=== PATIENT | female | born 1990 ===

== ENCOUNTER 2016-09-22 05:55 | Emergency (ER) | payer SELFPAY ==
[2016-09-22 06:05] VITALS: BP 126/82; PULSE 72; RESP 18; TEMP 98.8; O2SAT 100; BMI 25.0
[2016-09-22 06:21] LABS: PH,URINE 6.5 (4.7-8.0); URINE BILIRUBIN NEGATIVE (NEGATIVE); URINE BLOOD LARGE (NEGATIVE); URINE GLUCOSE (UA) NEGATIVE (NEGATIVE); URINE KETONE NEGATIVE (NEGATIVE); URINE LEUKOCYTE ESTERASE LARGE Leu/uL (NEGATIVE); URINE PROTEIN 100 mg/dL (<30 mg/dL); URINE UROBILINOGEN 0.2 E.U./dL (<1 E.U./dL)
[2016-09-22 06:33] LABS: URINE APPEARANCE SLIGHT-CLOUDY (CLEAR); URINE COLOR LIGHT RED (YELLOW)
[2016-09-22 06:44] LABS: URINE BACTERIA OCC (NEG); URINE EPITHELIAL CELLS 0 - 2 /hpf (0-5); URINE WBC 15 - 20 /hpf (0-6)
--- NOTE | 2016-09-22 07:30 | ED PDOC ---
Arrival/HPI - General Historian: Patient - History of Present Illness Time/Duration: < week Quality: Cramping, Burning, Dullness Severity Level: 7 - General Chief Complaint: Female Genitourinary Time Seen by Provider: 09/22/16 06:54 - History of Present Illness Narrative History of Present Illness (Text): 09/22/16 07:34 25 yo F w no significant past medical history presents with c/o dysuria and hematuria x4-5 days. Admits to 11/19 dull, cramping lower abdominal pain and lower back pain. LMP 09/03/2016. Patient states she has never had anything like this before, denies any h/o previous UTIs and STIs. Patient denies CP, SOB, SEGUNDO , headache, dizziness, arthralgias, rashes, fevers, chills, n/v/d/c, flank pain. (Kellen Salgado) Past Medical History - Infectious Disease Hx of Infectious Diseases: None - Reproductive Menopause: No - Psychiatric Hx Substance Use: No - Anesthesia Hx Anesthesia: No Hx Malignant Hyperthermia: No Family/Social History - Physician Review Nursing Documentation Reviewed: Yes Family/Social History: No Known Family HX Smoking Status: Never Smoked Hx Alcohol Use: No Hx Substance Use: No Allergies/Home Meds Allergies/Adverse Reactions: Allergies No Known Allergies Allergy (Verified 09/22/16 06:05) Review of Systems - Review of Systems Constitutional: absent: Fatigue, Weight Change, Fevers Eyes: absent: Vision Changes Respiratory: absent: SOB, Cough Cardiovascular: absent: Chest Pain, Palpitations, Edema, SEGUNDO Gastrointestinal: Abdominal Pain (lower abdomen). absent: Constipation, Diarrhea, Nausea, Vomiting, Hematochezia, Hematemesis Genitourinary Female: Dysuria, Hematuria Musculoskeletal: Back Pain Skin: absent: Rash, Skin Lesions Neurological: absent: Headache, Dizziness Physical Exam Temperature: Afebrile Blood Pressure: Normal Pulse: Regular Respiratory Rate: Normal Appearance: Positive for: Well-Appearing, Non-Toxic, Comfortable Pain Distress: Mild Mental Status: Positive for: Alert and Oriented X 3 - Systems Exam Head: Present: Atraumatic, Normocephalic Pupils: Present: PERRL Extroacular Muscles: Present: EOMI Conjunctiva: Present: Normal. No: Injected, Icteric Mouth: Present: Moist Mucous Membranes Neck: Present: Normal Range of Motion. No: Meningeal Signs, JVD Respiratory/Chest: Present: Clear to Auscultation, Good Air Exchange. No: Respiratory Distress, Accessory Muscle Use Cardiovascular: Present: Regular Rate and Rhythm, Normal S1, S2. No: Murmurs Abdomen: Present: Tenderness (suprapubic), Normal Bowel Sounds. No: Distention , Peritoneal Signs, Rebound, Guarding, McBurney's Point Tender, Rovsing's Sign Present Back: No: CVA Tenderness Upper Extremity: Present: Normal Inspection, NORMAL PULSES, Capillary Refill < 2s. No: Cyanosis, Edema Lower Extremity: Present: Normal Inspection, NORMAL PULSES. No: Edema, CALF TENDERNESS Neurological: Present: GCS=15, CN II-XII Intact, Speech Normal Skin: Present: Warm, Dry, Normal Color. 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 A 25 year old female with hematuria and dysuria. In agreement with resident note , which includes further HPI details. (Mario Olmos) 09/22/16 07:55 25 yo F w no sig medical history presented with lower abdominal cramping and pain, hematuria and dysuria x 5 days. UA positive for UTI. Toradol for pain and IVF. CT a/p to r/o pyelo, torsion, abscess, nephrolithiasis, etc. Urine preg test negative. Labs, chlamydia, gonorrhea sent. 09/22/16 09:30 Patient re-evaluated, states she feels better but still has some burning on urination. Abdominal pain improved. UTI diagnosis discussed, instructed to followup with PMD and gynecology, patient expresses understanding of plan. (Kellen Salgado) - Lab Interpretations Lab Results: 09/22/16 08:00 09/22/16 08:00 Lab Results 09/22/16 08:00: WBC 10.9, RBC 4.51, Hgb 13.5, Hct 39.4, MCV 87.4, MCH 29.9, MCHC 34.3, RDW 13.5, Plt Count 223, MPV 11.5 H, Gran % 82.8 H, Lymph % (Auto) 11.5 L, Sevier % (Auto) 5.3, Eos % (Auto) 0.2 L, Baso % (Auto) 0.2, Gran # 9.03 H , Lymph # 1.3, Sevier # 0.6, Eos # 0.0, Baso # 0.02, Sodium 139, Potassium 4.4, Chloride 102, Carbon Dioxide 28, Anion Gap 13, BUN 10, Creatinine 0.7, Est GFR ( Amer) > 60, Est GFR (Non-Af Amer) > 60, Random Glucose 101, Calcium 9.7 , Total Bilirubin 0.8, AST 30, ALT 34, Alkaline Phosphatase 87, Total Protein 8.4 H, Albumin 4.5, Globulin 3.9, Albumin/Globulin Ratio 1.2 09/22/16 06:00: Urine Color Light red, Urine Appearance Slight-cloudy, Urine pH 6.5, Ur Specific [place] <= 1.005, Urine Protein 100 H, Urine Glucose (UA) Negative, Urine Ketones Negative, Urine Blood Large H, Urine Nitrate Negative, Urine Bilirubin Negative, Urine Urobilinogen 0.2, Ur Leukocyte Esterase Large H , Urine RBC 1 - 3, Urine WBC 15 - 20, Ur Epithelial Cells 0 - 2, Urine Bacteria Occ - RAD Interpretation Narrative RAD Interpretations (Text): 09/22/16 09:40 CT A/P without contrast -- No evidence of urinary calculus or urinary tract obstruction. Probable exophytic left upper pole renal cortical cyst, 1.8cm, appears separate from adrenal gland. No other significant abnormalities. ( Kellen Salgado) Radiology Orders: 09/22/16 07:19 ABD & PELVIS W/O PO OR IV CONT [CT] Stat - Medication Orders Current Medication Orders: Discontinued Medications Sodium Chloride (Sodium Chloride 0.9%) 1,000 mls @ 999 mls/hr IV .Q1H1M STA Stop: 09/22/16 08:46 Ketorolac Tromethamine (Toradol) 15 mg IM STAT STA Stop: 09/22/16 07:47 Disposition/Present on Arrival - Present on Arrival Any Indicators Present on Arrival: No History of DVT/PE: No History of Uncontrolled Diabetes: No Urinary Catheter: No History of Decub. Ulcer: No History Surgical Site Infection Following: None - Disposition Have Diagnosis and Disposition been Completed?: Yes Disposition Time: 09:52 Patient Plan: Discharge - Disposition Diagnosis: UTI (urinary tract infection) Disposition: HOME/ ROUTINE Patient Problems: Current Active Problems Problem Status Diagnosed UTI (urinary tract infection) Acute Condition: STABLE Discharge Instructions (ExitCare): Urinary Tract Infection in Women (ED), Dysuria (ED) Print Language: [place] Additional Instructions: Please followup with your primary care physician or at the [facility] clinic within 1- 3 days. Please followup with gynecology (Dr. Zabala) within 1-3 days. Prescriptions: Nitrofurantoin Macrocrystals [Macrobid] 100 mg PO BID 5 Days Ibuprofen [Motrin Ib] 400 mg PO Q8 PRN #30 tablet PRN Reason: Pain, Moderate (4-7) Referrals: [facility] [Outside] - Follow up with primary Maryam Zabala MD [Staff Provider] - Follow up with primary
[2016-09-22] MEDS ORDERED: Sodium Chloride 0.9% 1,000 ML IV STA (07:46)
[2016-09-22 08:09] LABS: ADD MANUAL DIFF? NO
[2016-09-22 08:16] LABS: BASO # 0.02 K/mm3 (0.0-2.0); BASO % 0.2 % (0.0-3.0); EOS % 0.2 % (1.5-5.0); GRAN # 9.03 (1.4-6.5); GRAN % 82.8 % (50.0-68.0); HEMATOCRIT 39.4 % (36.0-48.0); LYMPH # 1.3 (1.2-3.4); LYMPH % 11.5 % (22.0-35.0); MEAN CELL VOLUME 87.4 fL (80.0-105.0); MEAN CORPUSCULAR HEMOGLOBIN 29.9 pg (25.0-35.0); MEAN CORPUSCULAR HGB CONC 34.3 g/dl (31.0-37.0); MEAN PLATELET VOLUME 11.5 fl (7.0-11.0); MONO # 0.6 (0.1-0.6); MONO % 5.3 % (1.0-6.0); PLATELET COUNT 223 10^3/uL (120.0-450.0); RED CELL DISTRIBUTION WIDTH 13.5 % (11.5-14.5); WHITE BLOOD COUNT 10.9 10^3/ul (4.5-11.0)
[2016-09-22 08:22] LABS: ALB/GLOB RATIO 1.2 (1.1-1.8); ALKALINE PHOSPHATASE 87 U/L (38-133); ALT/SGPT 34 U/L (7-56); AST/SGOT 30 U/L (15-39); BILIRUBIN,TOTAL 0.8 mg/dL (0.2-1.3); BLOOD UREA NITROGEN 10 mg/dL (7-21); CALCIUM 9.7 mg/dL (8.4-10.5); CARBON DIOXIDE 28 mmol/L (21-33); CHLORIDE 102 mmol/L (98-107); GFR AFRICAN-AMERICAN > 60; GLUCOSE,RANDOM 101 mg/dL (70-110); POTASSIUM 4.4 mmol/L (3.6-5.0); SODIUM 139 mmol/L (132-148); TOTAL PROTEIN 8.4 g/dL (5.8-8.3)
--- NOTE | 2016-09-22 09:04 | CT ---
PROCEDURE: CT Abdomen and Pelvis without intravenous contrast HISTORY: Renal colic COMPARISON: None. TECHNIQUE: Without contrast.. Contrast Dose: 0 Radiation dose: Total exam DLP = 429.71 mGy-cm. This CT exam was performed using one or more of the following dose reduction techniques: Automated exposure control, adjustment of the mA and/or kV according to patient size, and/or use of iterative reconstruction technique. FINDINGS: LOWER THORAX: Unremarkable. LIVER: Unremarkable. No gross lesion or ductal dilatation. GALLBLADDER AND BILE DUCTS: Unremarkable. PANCREAS: Unremarkable. No gross lesion or ductal dilatation. SPLEEN: Unremarkable. ADRENALS: Unremarkable. No mass. KIDNEYS AND URETERS: Probable exophytic left upper pole cortical cyst, medially, measuring 1.8 cm in diameter. This measures 17 Hounsfield units in attenuation. No other renal mass. No calculus or hydronephrosis. No ureteral calculus identified. VASCULATURE: Unremarkable. No aortic aneurysm. BOWEL: Unremarkable. No obstruction. No gross mural thickening. Evaluation limited by the absence of oral contrast opacification. APPENDIX: Not positively identified. No secondary findings to suggest acute appendicitis. PERITONEUM: Minimal fluid in cul-de-sac, nonspecific. LYMPH NODES: Unremarkable. No enlarged lymph nodes. BLADDER: Nondistended REPRODUCTIVE: Unremarkable uterus. BONES: No acute fracture. OTHER FINDINGS: None. IMPRESSION: No evidence of urinary calculus or urinary tract obstruction. Probable exophytic left upper pole renal cortical cyst, 1.8 cm. Although this arises from the medial upper pole, this appears separate from the adrenal gland. No other significant abnormality.
== END 2016-09-22 11:20 | disposition home or self-care (01) ==
LOC: ED 05:55
DX: N39.0 Urinary tract infection, site not specified (principal)